=== PATIENT | female | born 1945 | race Caucasian/White ===

== ENCOUNTER 2017-02-19 08:07 | Outpatient (CLI) | payer MEDICARE, OTHER ==
[2017-02-19] MEDS ORDERED: REGADENOSON 0.4 MG/5 ML DISP.SYRIN IVP ONE (09:30)
== END 2017-02-19 23:59 | disposition home or self-care (01) ==
LOC: NM 08:07
PROVIDERS: ATTEND Internal Medicine Interventional Cardiology
DX: R07.9 Chest pain, unspecified (principal); R06.00 Dyspnea, unspecified
CPT/HCPCS: 78452; A9502; J2785